=== PATIENT | female | born 1940 | race African-American/Black ===

== ENCOUNTER → 2016-11-12 | Outpatient (CLI) | payer MEDICARE, OTHER ==
[~2016-11-12] MED LIST: ACIPHEX20 MG PO; ACTOS15 MG PO; ALLEGRA ALLERG180 MG PO; ALLEGRA180 MG PO; ARIXTRA2.5 MG/0.1 SQ; ASPIRIN EC81 M1 PO; ASPIRIN81 M2 PO; ASPIRIN81 MG PO; ASTEPRO; ATARAX PO; ATROVENT NASAL15 ML; BACLOFEN10 MG PO; BLACK COHOSH40 M1 PO; BLACK COHOSH40 MG PO; CLARITIN10 M3 PO; COUMADIN3 MG PO; CYANOCOBALAMI100 MCG PO; DEXILANT60 MG PO; FENOGLIDE40 MG PO; FLONASE 0.05% N16 G1; FOLIC ACID800 MCG; FOLIC ACID800 MCG PO; HYDROCODON-ACE1 EAC5 PO; LEVAQUIN750 MG PO; LIPITOR20 MG PO; LOPRESSOR PO; METOPROLOL TAR25 MG PO; MICARDIS PO; NEURONTIN300 MG PO; NIFEDICAL; NIFEDICAL PO; NIFEDIPINE ER30 MG PO; NIFEDIPINE ER60 M1 PO; NIFEDIPINE ER60 M2 PO; NITROGLYCERIN0.4 MG SL; NORCO 10/3251 TAB PO; NORCO 5/325 TAB1 TAB PO; PERCOCET 5-3251 TAB PO; PERCOCET5/325 PO; PIOGLITAZONE HC15 MG PO; RYBIX ODT50 MG PO; TOPROL XL200 MG PO; TRAMADOL HCL50 M1 PO; TYLENOL325 M1 PO; VIT E PO; VITAMIN B-1250 MCG PO; VITAMIN B122500 MC1; VITAMIN E400 UNI1 PO; VITAMIN E400 UNI2 PO; VITAMIN E400 UNI4 PO
[2016-11-12 10:42] LABS: HEMATOCRIT 38.4 % (35.0-45.0); HEMOGLOBIN 12.5 gm/dL (12.0-16.0); MEAN CELL VOLUME 96.8 FL (83-96); MEAN CORPUSCULAR HEMOGLOBIN 31.6 PG (28-34); MEAN CORPUSCULAR HGB CONC 32.6 g/dL (30-36); MEAN PLATELET VOLUME 6.6 FL (6.5-11.5); RED BLOOD COUNT 3.96 X10e (3.90-5.30); RED CELL DISTRIBUTION WIDTH 12.5 % (11.0-15.5); WHITE BLOOD COUNT 7.1 X10e3 (4.0-10.5)
[2016-11-12 10:58] LABS: URINE BACTERIA AUWI NEG (NEGATIVE); URINE SQUAMOUS EPITHELIAL CELL OCC /[HPF]; UWBCS1 AUWI 0-2 (0-5)
[2016-11-12 11:05] LABS: CULTURE INDICATED? NO; URINE COLOR YELLOW; URINE SOURCE CLEAN CATCH
[2016-11-12 11:06] LABS: URINE APPEARANCE CLEAR; URINE LEUKOCYTE ESTERASE NEG (NEG); URINE NITRATE NEG (NEG); URINE PROTEIN 1+ (NEG); URINE SPECIFIC GRAVITY 1.037 (1.003-1.035)
[2016-11-12 11:07] LABS: URINE GLUCOSE NEG (NEG); URINE KETONE NEG (NEG)
[2016-11-12 11:08] LABS: URINE BILIRUBIN NEG (NEG); URINE BLOOD NEG (NEG)
[2016-11-12 11:09] LABS: URBCS1 AUWI 0-2 /[HPF] (0-2)
[2016-11-12 11:20] LABS: BUN/CREATININE RATIO 11.66; CREATININE SERUM 1.2 mg/dL (0.6-1.4); GLOM FILT RATE Estimated 55.9 mL/min (>60); POTASSIUM 3.9 mmol/L (3.5-5.1)
== END | disposition home or self-care (01) ==
LOC: CAMB 09:37
PROVIDERS: Orthopaedic Surgery
DX: Z01.818 Encounter for other preprocedural examination (principal); M24.662 Ankylosis, left knee; Z96.652 Presence of left artificial knee joint; I10 Essential (primary) hypertension; E11.9 Type 2 diabetes mellitus without complications; E78.5 Hyperlipidemia, unspecified; K92.2 Gastrointestinal hemorrhage, unspecified
CPT/HCPCS: 36415; 80048; 81003; 85027

== ENCOUNTER → 2016-11-24 | Day surgery (SDC) | payer MEDICARE, OTHER ==
--- NOTE | ~2016-11-24 | OR ---
Unit #: [id number] #: [id number] Patient: ROXANA VACA [id number] [address] [place], [place] [address] [id number] O MR#: [id number] NAME: ROXANA VACA. ROOM: Date of Procedure: 11/24/2016 Admission Date: 11/24/2016 Surgeon: Masoud Rodarte M.D. : 1940 Attending Physician: Masoud Rodarte M.D. Primary Care Physician: Virgil Gale M.D. OPERATIVE REPORT PREOPERATIVE DIAGNOSIS Arthrofibrosis, left total knee. POSTOPERATIVE DIAGNOSIS Arthrofibrosis, left total knee. PROCEDURE PERFORMED Arthroscopy, excision of scar tissue, and manipulation of left knee. ANESTHESIA General. ESTIMATED BLOOD LOSS About 25 to 50 mL. DESCRIPTION OF PROCEDURE The patient was brought to the operating room, given a general anesthetic. She was also given 1 g of Ancef. The left leg was prepped and draped in a sterile fashion. The leg was exsanguinated, placed in a leg apple and then prepped and draped. The arthroscope was introduced through the inferolateral portal. There was some drainage from the knee that appeared cloudy, so this was cultured. The patient then had the left knee visualized. Suprapatellar pouch and medial and lateral gutters had excessive scarring. We resected as much of this as possible and we did improve her motion to about 95 degrees of flexion. So, at that point, we elected to stop the procedure as the scar tissue was so thick and deep in the gutters, so I could not get to them with the arthroscope, so the portals were closed with #2 nylon. Sterile dressing applied and the general anesthetic reversed and the tourniquet released. Dictated by... Edgar Clement/candi TD: 11/25/2016 01:54 JOB #: [id number] Unit #: [id number] #: [id number] Patient: ROXNAA VACA OPERATIVE REPORT Page 1 of 1 X Masoud Rodarte MD PROCEDURE OPERATIVE NOTE
== END | disposition home or self-care (01) ==
LOC: CSUR 08:42
DX: M24.662 Ankylosis, left knee (principal); M19.90 Unspecified osteoarthritis, unspecified site; E11.9 Type 2 diabetes mellitus without complications; E78.5 Hyperlipidemia, unspecified; I10 Essential (primary) hypertension; D41.9 Neoplasm of uncertain behavior of unspecified urinary organ; I25.10 Atherosclerotic heart disease of native coronary artery without angina pectoris; Z96.653 Presence of artificial knee joint, bilateral; Z90.710 Acquired absence of both cervix and uterus; Z79.82 Long term (current) use of aspirin; Z79.899 Other long term (current) drug therapy; Z87.19 Personal history of other diseases of the digestive system; Z86.2 Personal history of diseases of the blood and blood-forming organs and certain disorders involving the immune mechanism
CPT/HCPCS: 82947; 87070; 87075; 87205; J2405; J3010

== ENCOUNTER 2017-01-16 10:38 | Emergency (ER) | payer MEDICARE, OTHER ==
--- NOTE | ~2017-01-16 | EKG ---
PATIENT: ROXANA VACA UNIT #: [id number] Ventricular Rate: 74 BPM Atrial Rate: 74 BPM P-R Interval: 184 ms QRS Duration: 76 ms Q-T Interval: 390 ms QTC Calculation(Bezet): 432 ms P [place]: 67 degrees Calculated R [place]: -42 degrees Calculated T [place]: 26 degrees Diagnosis Line: Normal sinus rhythm Diagnosis Line: Left axis deviation Diagnosis Line: Minimal voltage criteria for LVH, may be normal Diagnosis Line: variant Diagnosis Line: Possible Anterior infarct , age undetermined Diagnosis Line: Abnormal ECG Diagnosis Line: When compared with ECG of 05-MAY-2016 09:08, Diagnosis Line: Nonspecific T wave abnormality has replaced Diagnosis Line: inverted T waves in Inferior leads Diagnosis Line: Nonspecific T wave abnormality no longer evident Diagnosis Line: in Anterior leads Diagnosis Line: Confirmed by WAYNE BARCENAS MD ([id number]) on Diagnosis Line: 01/20/2017 3:11:32 PM INTERPRETING MD: NARINDER HERNANDEZ
--- NOTE | ~2017-01-16 | MR18 ---
[facility] A Service of [facility] RADIOLOGY TEXT RESULTS PATIENT: ROXANA VACA LOCATION: [facility] : 38 UNIT #: [id number] AGE: [address]: Melissa Lopez MD SEX: F ORDER DR: [id number] [facility] [address] [place], [place] [address] [id number] E MR#: [id number] Acc #: [id number] NAME: ROXANA VACA : 1940 SEX: F STUDY DATE/TIME: 01/16/2017 12:34 UNIT: MO ROOM: STUDY DESCRIPTION: MR Brain Wo Contrast Attending Physician: Franck Vann M.D. Ordering Physician: Franck Vann M.D. Primary Care Physician: Virgil Gale M.D. MRI CENTER REPORT This report is preliminary unless electronic signature is present. EXAM Brain MRI without contrast HISTORY Patient fell this morning. Confusion and gait disturbance, neck tenderness since falling. TECHNIQUE Multiplanar imaging brain of the brain was performed including diffusion weighted images. FINDINGS On diffusion weighted images there is no evidence of abnormal restricted diffusion to suggest a recent infarct. The routine brain images show encephalomalacia in the left posterior parietal region associated with chronic hemosiderin deposition. This is unchanged from previous scan and likely represents an area of previous hemorrhage or perhaps a large cavernous angioma. No recent hemorrhages are seen. Brain images elsewhere are normal. Extraaxial structures are unremarkable. 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 No acute findings. No evidence of recent infarct. Dictated by... Dex Roberson M.D. THIS IS AN ELECTRONICALLY VERIFIED REPORT Dex Roberson M.D. at 01/16/2017 4:28 PM RLF/julia [facility] A Service of [facility] RADIOLOGY TEXT RESULTS PATIENT: ROXANA VACA LOCATION: [facility] : 38 UNIT #: [id number] AGE: [address]: Melissa Lopez MD SEX: F ORDER DR: TD: 01/16/2017 14:29 JOB #: [id number] MRI CENTER REPORT Page 1 of 1 COPY
[~2017-01-16 10:38] MED LIST changes: -ASPIRIN EC81 M1 PO; -ASPIRIN81 MG PO; -BACLOFEN10 MG PO; -BLACK COHOSH40 MG PO; -CLARITIN10 M3 PO; -HYDROCODON-ACE1 EAC5 PO; -LOPRESSOR PO; -NEURONTIN300 MG PO; -NIFEDICAL PO; -NIFEDIPINE ER30 MG PO; -TRAMADOL HCL50 M1 PO; -TYLENOL325 M1 PO; -VITAMIN B-1250 MCG PO; -VITAMIN B122500 MC1; -VITAMIN E400 UNI2 PO
[2017-01-16 11:42] LABS: BASOPHIL# 0.1 X10e3 (0-0.3); BASOPHIL% 1.4 % (0-2.5); EOSINOPHIL# 0.2 X10e3 (0-0.7); EOSINOPHIL% 3.2 % (0.0-7.0); HEMATOCRIT 37.5 % (35.0-45.0); HEMOGLOBIN 12.4 gm/dL (12.0-16.0); LYMPHOCYTE# 1.9 X10e3 (1.0-3.5); LYMPHOCYTE% 37.9 % (17.0-45.0); MEAN CELL VOLUME 95.8 FL (83-96); MEAN CORPUSCULAR HEMOGLOBIN 31.6 PG (28-34); MEAN PLATELET VOLUME 6.6 FL (6.5-11.5); MONOCYTE# 0.6 X10e3 (0-1.0); MONOCYTE% 11.7 % (3.0-12.0); NEUTROPHIL# 2.3 X10e3 (1.5-7.1); NEUTROPHIL% 45.8 % (40-75); PLATELET COUNT 219 X10e3 (140-420); RED BLOOD COUNT 3.91 X10e (3.90-5.30); RED CELL DISTRIBUTION WIDTH 12.3 % (11.0-15.5)
[2017-01-16 11:43] LABS: DIFF IND NO
[2017-01-16 11:51] LABS: POC - CKMB <1.0 ng/mL (0.0-7.9); POC - TROPONIN <0.05 ng/mL (<=0.05)
[2017-01-16 11:58] LABS: PARTIAL THROMBOPLASTIN TIME 24.7 SECONDS (23.5-31.3)
[2017-01-16 12:05] LABS: ALBUMIN SERUM 3.5 g/dL (3.5-5.0); ALKALINE PHOSPHATASE 81 U/L (32-92); ALT (SGPT) 17 U/L (10-40); AST (SGOT) 24 U/L (10-42); BILIRUBIN, DIRECT 0.1 mg/dL (0.0-0.2); BILIRUBIN,TOTAL 1.1 mg/dL (0.2-2.0); BLOOD UREA NITROGEN 8 mg/dL (9-23); BUN/CREATININE RATIO 6.15; CALCIUM SERUM 9.7 mg/dL (8.4-10.2); CARBON DIOXIDE 27 mmol/L (22-31); CHLORIDE 109 mmol/L (100-111); CREATININE SERUM 1.3 mg/dL (0.6-1.4); GLOM FILT RATE Estimated 45.5 mL/min (>60); GLUCOSE FASTING 92 mg/dL (70-110); PROTEIN TOTAL SERUM 6.9 g/dL (6.0-8.3); SODIUM 142 mmol/L (135-145)
[2017-01-16 12:06] LABS: ALCOHOL BLOOD <5 mg/dL (0)
[2017-01-16 14:42] LABS: POC - CKMB <1.0 ng/mL (0.0-7.9); POC - TROPONIN <0.05 ng/mL (<=0.05)
[2017-01-16 14:45] LABS: URINE SOURCE CLEAN CATCH
[2017-01-16 14:50] LABS: URINE APPEARANCE CLEAR; URINE BILIRUBIN NEG (NEG); URINE BLOOD NEG (NEG); URINE COLOR YELLOW; URINE GLUCOSE NEG (NEG); URINE KETONE NEG (NEG); URINE LEUKOCYTE ESTERASE NEG (NEG); URINE NITRATE NEG (NEG); URINE PROTEIN NEG (NEG); URINE SPECIFIC GRAVITY 1.013 (1.003-1.035); URINE UROBILINOGEN 0.2 MG/DL (NEG)
[2017-01-16 15:06] LABS: CULTURE INDICATED? NO
[2017-04-13] MEDS ORDERED: METOPROLOL TAR25 MG PO (21:19)
[2017-04-13] MEDS ORDERED: BLACK COHOSH40 MG PO (21:20)
[2017-04-13] MEDS ORDERED: NITROGLYCERIN0.4 MG SL (21:20)
[2017-04-13] MEDS ORDERED: FOLIC ACID800 MCG (21:20)
[2017-04-13] MEDS ORDERED: VITAMIN E400 UNI2 PO (21:20)
[2017-04-13] MEDS ORDERED: VITAMIN B122500 MC1 (21:20)
[2017-04-13] MEDS ORDERED: LIPITOR20 MG PO (21:20)
[2017-04-13] MEDS ORDERED: DEXILANT60 MG PO (21:20)
[2017-04-13] MEDS ORDERED: MICARDIS PO (21:21)
[2017-04-13] MEDS ORDERED: ASPIRIN EC81 M1 PO (21:21)
[2017-04-13] MEDS ORDERED: ALLEGRA ALLERG180 MG PO (21:21)
[2017-04-13] MEDS ORDERED: NIFEDIPINE ER30 MG PO (21:21)
[2017-04-13] MEDS ORDERED: NIFEDICAL PO (21:23)
[2017-04-14] MEDS ORDERED: CLARITIN10 M3 PO (08:19)
[2017-04-14] MEDS ORDERED: MICARDIS PO (08:20)
[2017-04-14] MEDS ORDERED: LIPITOR20 MG PO (08:21)
[2017-04-14] MEDS ORDERED: LOPRESSOR PO (08:21)
[2017-04-14] MEDS ORDERED: HYDROCODON-ACE1 EAC5 PO (08:23)
[2017-04-14] MEDS ORDERED: DEXILANT60 MG PO (08:24)
[2017-04-14] MEDS ORDERED: BACLOFEN10 MG PO (08:24)
[2017-04-14] MEDS ORDERED: NEURONTIN300 MG PO (08:25)
[2017-04-14] MEDS ORDERED: NIFEDIPINE ER60 M1 PO (08:25)
[2017-04-14] MEDS ORDERED: TYLENOL325 M1 PO (15:40)
[2017-04-14] MEDS ORDERED: TRAMADOL HCL50 M1 PO (15:41)
== END 2017-01-16 17:32 | disposition home or self-care (01) ==
LOC: CED 10:38
PROVIDERS: Emergency Medicine
DX: T42.6X5A Adverse effect of other antiepileptic and sedative-hypnotic drugs, initial encounter (principal); I10 Essential (primary) hypertension; E11.9 Type 2 diabetes mellitus without complications; Z88.8 Allergy status to other drugs, medicaments and biological substances
CPT/HCPCS: 36415; 70551; 80048; 80076; 81003; 82553; 82947; 84484; 85025; 85610; 85730; 93005; 96374; 99284; G0480; J2060

== ENCOUNTER 2017-04-04 12:49 | Emergency (ER) | payer MEDICARE, OTHER ==
[~2017-04-04] VITALS: Ht 157.5 cm; Wt 54.4 kg
[2017-04-13] MEDS ORDERED: METOPROLOL TAR25 MG PO (21:19)
[2017-04-13] MEDS ORDERED: BLACK COHOSH40 MG PO (21:20)
[2017-04-13] MEDS ORDERED: NITROGLYCERIN0.4 MG SL (21:20)
[2017-04-13] MEDS ORDERED: DEXILANT60 MG PO (21:20)
[2017-04-13] MEDS ORDERED: LIPITOR20 MG PO (21:20)
[2017-04-13] MEDS ORDERED: FOLIC ACID800 MCG (21:20)
[2017-04-13] MEDS ORDERED: VITAMIN B122500 MC1 (21:20)
[2017-04-13] MEDS ORDERED: VITAMIN E400 UNI2 PO (21:20)
[2017-04-13] MEDS ORDERED: MICARDIS PO (21:21)
[2017-04-13] MEDS ORDERED: ASPIRIN EC81 M1 PO (21:21)
[2017-04-13] MEDS ORDERED: ALLEGRA ALLERG180 MG PO (21:21)
[2017-04-13] MEDS ORDERED: NIFEDIPINE ER30 MG PO (21:21)
[2017-04-13] MEDS ORDERED: NIFEDICAL PO (21:23)
[2017-04-14] MEDS ORDERED: CLARITIN10 M3 PO (08:19)
[2017-04-14] MEDS ORDERED: MICARDIS PO (08:20)
[2017-04-14] MEDS ORDERED: LOPRESSOR PO (08:21)
[2017-04-14] MEDS ORDERED: LIPITOR20 MG PO (08:21)
[2017-04-14] MEDS ORDERED: HYDROCODON-ACE1 EAC5 PO (08:23)
[2017-04-14] MEDS ORDERED: DEXILANT60 MG PO (08:24)
[2017-04-14] MEDS ORDERED: BACLOFEN10 MG PO (08:24)
[2017-04-14] MEDS ORDERED: NEURONTIN300 MG PO (08:25)
[2017-04-14] MEDS ORDERED: NIFEDIPINE ER60 M1 PO (08:25)
[2017-04-14] MEDS ORDERED: TYLENOL325 M1 PO (15:40)
[2017-04-14] MEDS ORDERED: TRAMADOL HCL50 M1 PO (15:41)
== END 2017-04-04 13:43 | disposition home or self-care (01) ==
LOC: CED 12:49
DX: M54.41 Lumbago with sciatica, right side (principal); E11.9 Type 2 diabetes mellitus without complications; I10 Essential (primary) hypertension; Z90.710 Acquired absence of both cervix and uterus; N28.9 Disorder of kidney and ureter, unspecified
CPT/HCPCS: 99283

== ENCOUNTER 2017-04-10 17:39 | Emergency (ER) | payer OTHER, MEDICARE ==
[~2017-04-10] VITALS: Ht 157.5 cm; Wt 54.4 kg
--- NOTE | ~2017-04-10 | CR181 ---
[facility] A Service of [facility] RADIOLOGY TEXT RESULTS PATIENT: ROXANA VACA LOCATION: [facility] : 38 UNIT #: [id number] AGE: [address]: Julien Canales MD SEX: F ORDER DR: [id number] [facility] [address] [place], [place] [address] [id number] E MR#: [id number] Acc #: [id number] NAME: ROXANA VACA : 1940 SEX: F STUDY DATE/TIME: 04/10/2017 19:01 UNIT: MO ROOM: STUDY DESCRIPTION: CR Lumbar Spine 2 or 3 Views Attending Physician: Julien Canales M.D. Ordering Physician: Julien Canales M.D. Primary Care Physician: Virgil Gale M.D. MEDICAL IMAGING REPORT This report is preliminary unless electronic signature is present EXAM Three views lumbar spine. DATE 04/10/2017 HISTORY 77-year-old female with lumbar spine pain which began 6 days ago, worse today. No known injury. COMPARISON Lumbar spine radiographs, 04/08/2017. FINDINGS There is advanced diminished disc height with vacuum disc phenomenon, endplate sclerosis, and anterior and posterior osteophyte formation at L3-4. No acute lumbar spine fracture. Probable 3 mm anterolisthesis L4 upon L5, likely chronic and related to facet arthropathy at that level. Facet arthropathy is greatest at L3-4 through L5-S1. No osteolytic or osteoblastic abnormalities are identified. Bilateral calcified pelvic phleboliths are incidentally noted. No sacroiliac joint or pubic symphysis diastasis is seen. IMPRESSION 1. Advanced degenerative disc and endplate changes at L3-4, unchanged from prior. 2. Probable 3 mm anterolisthesis L4 upon L5, likely related to facet arthropathy at that level. 3. No acute findings. [facility] A Service of [facility] RADIOLOGY TEXT RESULTS PATIENT: ROXANA VACA LOCATION: [facility] : 38 UNIT #: [id number] AGE: [address]: Julien Canales MD SEX: F ORDER DR: Dictated by... Dianne Silva M.D. THIS IS AN ELECTRONICALLY VERIFIED REPORT Dianne Silva M.D. at 04/11/2017 1:54 PM GENNARO/karol TD: 04/11/2017 10:13 JOB #: [id number] MEDICAL IMAGING REPORT Page 1 of 1 COPY
[2017-04-13] MEDS ORDERED: METOPROLOL TAR25 MG PO (21:19)
[2017-04-13] MEDS ORDERED: BLACK COHOSH40 MG PO (21:20)
[2017-04-13] MEDS ORDERED: VITAMIN E400 UNI2 PO (21:20)
[2017-04-13] MEDS ORDERED: DEXILANT60 MG PO (21:20)
[2017-04-13] MEDS ORDERED: NITROGLYCERIN0.4 MG SL (21:20)
[2017-04-13] MEDS ORDERED: LIPITOR20 MG PO (21:20)
[2017-04-13] MEDS ORDERED: FOLIC ACID800 MCG (21:20)
[2017-04-13] MEDS ORDERED: VITAMIN B122500 MC1 (21:20)
[2017-04-13] MEDS ORDERED: NIFEDIPINE ER30 MG PO (21:21)
[2017-04-13] MEDS ORDERED: ASPIRIN EC81 M1 PO (21:21)
[2017-04-13] MEDS ORDERED: MICARDIS PO (21:21)
[2017-04-13] MEDS ORDERED: ALLEGRA ALLERG180 MG PO (21:21)
[2017-04-13] MEDS ORDERED: NIFEDICAL PO (21:23)
[2017-04-14] MEDS ORDERED: CLARITIN10 M3 PO (08:19)
[2017-04-14] MEDS ORDERED: MICARDIS PO (08:20)
[2017-04-14] MEDS ORDERED: LOPRESSOR PO (08:21)
[2017-04-14] MEDS ORDERED: LIPITOR20 MG PO (08:21)
[2017-04-14] MEDS ORDERED: HYDROCODON-ACE1 EAC5 PO (08:23)
[2017-04-14] MEDS ORDERED: DEXILANT60 MG PO (08:24)
[2017-04-14] MEDS ORDERED: BACLOFEN10 MG PO (08:24)
[2017-04-14] MEDS ORDERED: NEURONTIN300 MG PO (08:25)
[2017-04-14] MEDS ORDERED: NIFEDIPINE ER60 M1 PO (08:25)
[2017-04-14] MEDS ORDERED: TYLENOL325 M1 PO (15:40)
[2017-04-14] MEDS ORDERED: TRAMADOL HCL50 M1 PO (15:41)
== END 2017-04-10 20:26 | disposition home or self-care (01) ==
LOC: CED 17:39
DX: M54.41 Lumbago with sciatica, right side (principal); Z90.710 Acquired absence of both cervix and uterus
CPT/HCPCS: 72100; 99283

== ENCOUNTER 2017-04-19 09:50 | Emergency (ER) | payer MEDICARE, OTHER ==
[~2017-04-19] VITALS: Ht 157.5 cm; Wt 63.5 kg
--- NOTE | ~2017-04-19 | ER ---
Unit #: [id number] #: [id number] Patient: ROXANA KING [id number] [address] [place], [place] [address] [id number] E MR#: [id number] NAME: ROXANA KING. ROOM: Sex: F Age: 77 : 1940 Service Date: 04/19/2017 Attending Physician: Julien Canales M.D. Primary Care Physician: Virgil Gale M.D. EMERGENCY DEPT PHYSICIAN NOTE Please see the written T-sheet for the full details of the encounter. Ms. King is a 77-year-old woman who presents to the emergency department today with a chief complaint of right leg pain that radiates from the lower back, that has been present for over a month. This is in fact the fourth time the patient has presented to the emergency department with this chief complaint and in addition to her four ER visits, she has had at least one visit to her primary doctor regarding her presumably sciatic pain. Initially, the patient was seen on April 04 and was diagnosed clinically with sciatica, given a course of steroids to complete. She represented to the emergency department on April 10. At that time, a lumbar spine x-ray was ordered which showed degenerative changes but nothing acute. She was prescribed Lortab and baclofen for her symptoms and advised to follow up with her doctor. Apparently, the patient did follow up with her doctor and had an outpatient CT ordered to address her ongoing symptoms; however, the patient did not complete the CT on April 13 and instead came to the emergency department again for the same chronic pain. However, on that date the patient was noted to be significantly altered from her previous visits, confused, and disoriented. An extensive workup was completed showing no obvious source for the patient's confusion and thus it was attributed to the recent pain medications that were started. The patient was observed overnight. Pain medications were discontinued and her mental status returned to normal. The patient again presents today for the same complaint stating that she had had no new injury to her lower back or leg and that the pain was not significantly different than the previous three visits to the emergency department this month. I explained to the patient that the emergency department is not the appropriate venue for the ongoing treatment of chronic pain and that especially in light of her previous visit showing a poor reaction to narcotic pain medication that it would be inappropriate to prescribe additional or stronger pain medication given her altered mental status previously. I expressed concern to the patient that continuing to come to the emergency department for the same complaint would be unlikely to advance her workup or to significantly help her symptoms. After a physical exam which demonstrated no focal neurological abnormality and history which did not reveal any concerning findings for cord compromise, I discussed with the patient the plan to start her on Neurontin to see if this helps with her neuropathic pain. I again re-iterated to the patient that followup was essential and that continued ER visits again would be unlikely to be of benefit to her. The patient voiced understanding and agreed to followup as directed. She will be given contact information for spine surgery and given a prescription for a short course of gabapentin in an attempt to help with her chronic pain while attempting not to create a similar situation to her previous admission when her toxic metabolic encephalopathy was attributed to the narcotic pain medication. Unit #: [id number] #: [id number] Patient: ROXANA KING Estela Dictated by... Edgar Seth/cecy TD: 04/19/2017 15:30 JOB #: [id number] EMERGENCY DEPT PHYSICIAN NOTE Page 1 of 1 X Julien Canales MD X EMERGENCY DEPARTMENT REPORT
[~2017-04-19 09:50] MED LIST changes: +ASPIRIN EC81 M1 PO; +BACLOFEN10 MG PO; +BLACK COHOSH40 MG PO; +CLARITIN10 M3 PO; +HYDROCODON-ACE1 EAC5 PO; +LOPRESSOR PO; +NEURONTIN300 MG PO; +NIFEDICAL PO; +NIFEDIPINE ER30 MG PO; +TRAMADOL HCL50 M1 PO; +TYLENOL325 M1 PO; +VITAMIN B122500 MC1; +VITAMIN E400 UNI2 PO
== END 2017-04-19 11:08 | disposition home or self-care (01) ==
LOC: CED 09:50
DX: M54.41 Lumbago with sciatica, right side (principal); N18.9 Chronic kidney disease, unspecified; E78.5 Hyperlipidemia, unspecified; Z90.710 Acquired absence of both cervix and uterus; Z79.899 Other long term (current) drug therapy
CPT/HCPCS: 99283

== ENCOUNTER 2017-04-21 15:04 | Inpatient (IN) | payer MEDICARE, OTHER ==
[~2017-04-21] VITALS: Ht 157.5 cm; Wt 62.0 kg
--- NOTE | ~2017-04-21 | OR ---
Unit #: [id number] #: [id number] Patient: ROXANA VACA [id number] [facility]. [place], [place] [address] [id number] I MR#: [id number] NAME: ROXANA VACA. ROOM: 301 Date of Procedure: 04/22/2017 Admission Date: 04/21/2017 Surgeon: Chato Smith M.D. : 1940 Attending Physician: Daija Paul M.D. Primary Care Physician: Reece Gale M.D. SURGERY CENTER OPERATIVE NOTE JOB NOTE: CC: DR. REECE GALE. PROCEDURE PERFORMED Lumbar epidural steroid injection under x-ray guided needle placement. PREOPERATIVE DIAGNOSES 1. Acute lumbar radiculitis. 2. Herniated disk, L3-4. 3. Spinal stenosis, lumbosacral spine. 4. Degenerative joint disease, lumbosacral spine. 5. Degenerative disk disease, lumbosacral spine. 6. Facet arthrosis, lumbosacral spine. 7. Facet arthralgia, lumbosacral spine. INDICATIONS FOR PROCEDURE The patient is currently in an inpatient at [facility] with an intractable right lower extremity pain, which has interfered with her activities of normal living. She has had a longstanding history of chronic lumbar radicular pain, which has been fairly well managed medically up until this date. She is in possession of a CT report, which shows L3-4 disk disease as well as multiple level other disk disease, stenosis and facet arthrosis. After discussing risks and benefits of proceeding today with a lumbar approach epidural steroid injection and return on 05/11 to my clinic as an outpatient. The patient agreed this would be the appropriate course of action. DESCRIPTION OF PROCEDURE She was then taken to the operating room where she was prepped and draped in a sterile manner. Standard monitors were applied. She refused all forms of sedation and L3-4 level was accessed using loss of resistance technique and x-ray guidance. Needle placement was confirmed with injection of 2 mL of Omnipaque. Approximately all dye flow was in the inferior direction at this L3-4 needle placement. Following successful needle placement confirmation, the patient received an injectate containing 2 mL of normal saline, 2 mL of 0.25% bupivacaine, and 80 mg of methylprednisolone. She tolerated this procedure well. She was discharged back to her room with followup instructions described as above. At her next visit, we will strongly consider an L2-3, L4-5, dual needle technique. Dictated by.Tiffanie Smith M.D. Unit #: [id number] #: [id number] Patient: ROXANA VACA Estela DURAN/candi TD: 04/23/2017 05:39 JOB #: [id number] SURGERY CENTER OPERATIVE NOTE Page 1 of 1 X Rancho Smith MD X PROCEDURE OPERATIVE NOTE
--- NOTE | ~2017-04-21 | DS ---
Unit #: [id number] #: [id number] Patient: ROXANA KING [id number] [address] [address] [id number] I MR#: [id number] NAME: ROXANA KING. ROOM: 301 Age: 77 Sex: F Admission Date: 04/21/2017 : 1940 Discharge Date: 04/22/2017 Attending Physician: Daija Paul M.D. Primary Care Physician: Virgil Gale M.D. DISCHARGE SUMMARY PRINCIPAL DIAGNOSES 1. Medication-induced hypotension. 2. Gwhnq-ma-vpfziqd kidney disease with discharge creatinine of 1.5, baseline creatinine 1.3. 3. L3-L4 disc collapse with severe right nerve root compression, status post epidural injection. 4. Hypertension. 5. Coronary artery disease. 6. Memory loss short term confirmed by . 7. Normocytic anemia 8. Coronary artery disease. 9. Gastroesophageal reflux disease. 10. Hyperlipidemia. 11. Osteoarthritis. CONSULTANTS Dr. Reece Ventura, pain management PROCEDURES Epidural block of L3-L4, this occurred without complication CLINICAL HISTORY AND HOSPITAL COURSE Ms. King is a 77-year-old female, just discharged from this facility on April 14, after presenting with confusion. She was sent home with instructions to discontinue her Micardis. Unfortunately, the patient reinitiated medication at home and subsequently presented with hypotension and associated dizziness. Her creatinine was also elevated at 2.1 up from her baseline of 1.3. The patient subsequently admitted. Micardis again was held. The patient was placed on IV fluids and her blood pressure is now normalized into the 110s. She is not having any further dizziness and I am still awaiting evaluation by physical and occupational therapy. However, assuming that she is able to ambulate, again, I have instructed both her and her to hold her Micardis. Renal function has also improved significantly and I think that she will return to baseline with appropriate oral intake. The patient does have some significant right-sided radiculopathy secondary to nerve impingement from a collapsed L3-L4 disc. Dr. Ventura was consulted and the patient underwent epidural block today and feels significantly better. She will followup with Dr. Gale and Dr. Smith Unit #: [id number] #: [id number] Patient: ROXANA KING who performed the procedure as an outpatient. I am concerned that the patient had some significant underlying short term memory loss. Her was present today and confirmed that she does, indeed, have memory loss, and the patient also admits that she has some short-term memory loss. I have instructed her to remove her Micardis from her home medications and I will have home health further come and evaluate medications at home. She will be discharged home later today presuming that she is able to function well with PT/OT. DISCHARGE CONDITION Stable. DISCHARGE STATUS Discharged to home. DISCHARGE MEDICATIONS 1. Neurontin 300 mg b.i.d. 2. Caro 180 mg daily 3. Lopressor 25 mg b.i.d. 4. Lipitor 20 mg daily 5. Aspirin 81 mg daily 6. Tramadol 50 mg p.o. q.8h p.r.n. for pain, no new prescription given 7. Dexilant 60 mg daily 8. Folic acid 800 mcg p.o. daily 9. Vitamin E 400 units p.o. daily 10. Vitamin B12 1000 mcg p.o. daily DISCHARGE INSTRUCTIONS The patient is instructed to follow a heart healthy diet. She can increase her activity as tolerated. FOLLOWUP The patient will follow up with Dr. Gale in one week and again she will follow up with Dr. Smith on May 11, 2017. Dictated by... Daija Paul M.D. THOMAS/dana TD: 04/23/2017 06:34 JOB #: [id number] DISCHARGE SUMMARY Page 1 of 1 X Daija Paul MD X DISCHARGE SUMMARY
--- NOTE | ~2017-04-21 | HP ---
Unit #: [id number] #: [id number] Patient: ROXANA VACA [id number] [address] [place], [place] [address] [id number] I MR#: [id number] NAME: ROXANA VACA. ROOM: 301 Age: 77 Sex: F Admission Date: 04/21/2017 : 1940 Attending Physician: Gina Shah M.D. Primary Care Physician: Virgil Gale M.D. HISTORY AND PHYSICAL CHIEF COMPLAINT Acute on chronic kidney disease with symptomatic hypotension. HISTORY OF PRESENT ILLNESS This pleasant 77-year-old female with chronic kidney disease, hypertension, and DJD, is admitted for acute on chronic kidney disease. The patient developed right sciatica about a week ago. She was placed on baclofen and Percocet and required admission April 13 through April 14, 2017, for toxic metabolic encephalopathy secondary to medications. A CT scan was actually performed yesterday showing collapse of the L3-4 disc with nerve root impingement on the right. Patient notes increasing dizziness for the past two days. She has had poor p.o. intake and decreased urinary output. She was seen by visiting nurse service today and was noted to have a low blood pressure with a systolic blood pressure of about 79. She was told to come back to the emergency department, and her creatinine is 2.1, up from a creatinine of 1.3 last week. She still is taking Micardis, although this medication was to be discontinued a week ago. In the ER, she was given a liter of saline. On examination, she does have positive straight leg raising at about 80 degrees on the right. PAST MEDICAL HISTORY 1. Chronic DJD. 2. Essential hypertension. 3. Hyperlipidemia. 4. Chronic kidney disease with a creatinine of 1.3 on April 14, 2017. 5. Mild CAD. Patient underwent a cardiac catheterization October 2008 showing minimal CAD. Lexiscan Cardiolite performed August 2013 was negative for ischemia. Patient had a normal ejection fraction. 6. Questionable AODM. 7. GERD. 8. Thyroid nodule with thyroid cancer, status post thyroidectomy. Recent TSH was normal. 9. Allergic rhinitis. 10. Thyroidectomy. 11. Bilateral total knee replacements with left knee revision. 12. Hysterectomy. 13. Bilateral cataract extraction. ALLERGIES Coumadin. HOME MEDICATIONS 1. Patient is taking Micardis which was to be discontinued last week, 78 Unit #: [id number] #: [id number] Patient: ROXANA VACA M mg daily. 2. Neurontin 300 mg b.i.d. 3. Claritin 10 mg daily. 4. Metoprolol 25 mg b.i.d. 5. Nifedipine ER 60 mg daily. 6. Lipitor 20 mg daily. 7. Dexilant 60 mg daily. 8. Ultram 50 mg q.8 hours p.r.n. 9. Patient states that she is taking a muscle relaxant, and that might be making her dizzy as well. FAMILY HISTORY CAD. SOCIAL HISTORY The patient lives with her . Lifelong nonsmoker and does not drink alcohol. REVIEW OF SYSTEMS Notable for dizziness, back pain, above-mentioned surgeries, DJD, hypertension, hyperlipidemia, chronic kidney disease, and thyroid cancer. All other systems were reviewed and are otherwise negative. PHYSICAL EXAMINATION GENERAL: A very pleasant, young-appearing, 77-year-old female currently in no acute distress. VITAL SIGNS: Temperature 98.2, pulse 89, respirations 16, blood pressure 105/43, and O2 saturation is 99% on room air. HEENT: Eyes PERRLA. Extraocular muscles are intact, status post bilateral cataract extraction. Pharynx is benign. NECK: Supple without adenopathy or thyromegaly. CHEST: Clear. CARDIAC: Normal S1 and S2 without S3, S4, or murmur. ABDOMEN: Bowel sounds are present. No hepatosplenomegaly, tenderness, or masses. EXTREMITIES: Without clubbing, cyanosis, or edema. Pedal pulses are present. NEUROLOGIC: Patient is awake and alert. She seems to be a little confused. Her cranial nerves are intact, although she is blinking her eyes quite a bit. She has +5 over 5 strength throughout. She is able to stand without assistance. Negative pronator drift. Deep tendon reflexes are hard to obtain. BACK: No percussion tenderness over the spine. Patient does have a positive straight leg raising on the right at 80 degrees. DIAGNOSTIC STUDIES ADMISSION LABORATORY: Hematocrit is 36.3 with normal white count and platelet count. SMA-12: Creatinine is 2.1, up from a creatinine of 1.3 last week. Cardiac markers are negative. Urinalysis 1+ leukocyte esterase and trace protein without significant white or red cells. CARDIOLOGY: EKG normal sinus rhythm, rate 80, left axis deviation, unchanged from before. ASSESSMENT 1. Acute on chronic kidney disease in part related to poor oral intake. Also, patient is still taking Micardis which was to be discontinued last week. Unit #: [id number] #: [id number] Patient: ROXAAN VACA 2. Right sciatica secondary to L3-L4 disc collapse with right nerve root compression on CT scan performed yesterday. 3. Essential hypertension with hypotension at home. 4. Minimal coronary artery disease on cardiac catheterization in October 2008 and negative ischemia on Lexiscan Cardiolite in August 2013. 5. DJD. 6. Thyroidectomy for thyroid cancer with normal TSH this past month. PLANS 1. IV fluids. 2. Discontinue Micardis and will hold nifedipine until blood pressure improves. 3. SCDs for DVT prophylaxis. 4. Will ask Dr. Corey Ventura to see for possible epidural steroid injection of L3-L4 disc if felt to be appropriate. 1. Dictated by Gina Shah M.D. ANNELIESE/maykel TD: 04/21/2017 22:08 JOB #: [id number] HISTORY AND PHYSICAL Page 1 of 1 X Gina Shah MD HISTORY AND PHYSICAL
--- NOTE | ~2017-04-21 | EKG ---
PATIENT: ROXANA VACA UNIT #: [id number] Ventricular Rate: 81 BPM Atrial Rate: 81 BPM P-R Interval: 148 ms QRS Duration: 80 ms Q-T Interval: 378 ms QTC Calculation(Bezet): 439 ms P [place]: 67 degrees Calculated R [place]: -52 degrees Calculated T [place]: 42 degrees Diagnosis Line: Normal sinus rhythm Diagnosis Line: Left anterior fascicular block Diagnosis Line: Minimal voltage criteria for LVH, may be normal Diagnosis Line: variant Diagnosis Line: Anterior infarct , age undetermined Diagnosis Line: Abnormal ECG Diagnosis Line: When compared with ECG of 13-APR-2017 16:27, Diagnosis Line: No significant change was found Diagnosis Line: Confirmed by MONICA RAJAN MD ([id number]) on 04/22/2017 Diagnosis Line: 7:16:30 PM INTERPRETING MD: SATINDER HERNANDEZ
[2017-04-21 16:23] LABS: BASOPHIL# 0.1 X10e3 (0-0.3); EOSINOPHIL# 0.1 X10e3 (0-0.7); EOSINOPHIL% 1.2 % (0.0-7.0); HEMATOCRIT 36.3 % (35.0-45.0); HEMOGLOBIN 12.2 gm/dL (12.0-16.0); LYMPHOCYTE# 2.5 X10e3 (1.0-3.5); LYMPHOCYTE% 31.1 % (17.0-45.0); MEAN CELL VOLUME 94.4 FL (83-96); MEAN CORPUSCULAR HEMOGLOBIN 31.7 PG (28-34); MEAN CORPUSCULAR HGB CONC 33.6 g/dL (30-36); MEAN PLATELET VOLUME 6.5 FL (6.5-11.5); MONOCYTE# 0.8 X10e3 (0-1.0); MONOCYTE% 10.7 % (3.0-12.0); NEUTROPHIL# 4.4 X10e3 (1.5-7.1); PLATELET COUNT 245 X10e3 (140-420); RED BLOOD COUNT 3.84 X10e (3.90-5.30); RED CELL DISTRIBUTION WIDTH 13.1 % (11.0-15.5); WHITE BLOOD COUNT 7.9 X10e3 (4.0-10.5)
[2017-04-21 16:24] LABS: DIFF IND NO
[2017-04-21 16:27] LABS: POC - CKMB <1.0 ng/mL (0.0-7.9); POC - TROPONIN <0.05 ng/mL (<=0.05)
[2017-04-21 16:48] LABS: BILIRUBIN, DIRECT 0.2 mg/dL (0.0-0.2); BILIRUBIN,INDIRECT 1.4 mg/dL (0.0-0.9); BILIRUBIN,TOTAL 1.6 mg/dL (0.2-2.0); BUN/CREATININE RATIO 9.04; CALCIUM SERUM 9.9 mg/dL (8.4-10.2); CREATININE SERUM 2.1 mg/dL (0.6-1.4); GLOM FILT RATE Estimated 25.3 mL/min (>60); POTASSIUM 4.2 mmol/L (3.5-5.1); PROTEIN TOTAL SERUM 7.6 g/dL (6.0-8.3)
[2017-04-21 18:27] LABS: POC - CKMB <1.0 ng/mL (0.0-7.9); POC - TROPONIN <0.05 ng/mL (<=0.05)
[2017-04-21 18:40] LABS: URINE SOURCE CLEAN CATCH
[2017-04-21 18:49] LABS: URINE APPEARANCE CLEAR; URINE BILIRUBIN NEG (NEG); URINE BLOOD NEG (NEG); URINE COLOR YELLOW; URINE GLUCOSE NEG (NEG); URINE KETONE NEG (NEG); URINE LEUKOCYTE ESTERASE 1+ (NEG); URINE NITRATE NEG (NEG); URINE PROTEIN TRACE (NEG); URINE SPECIFIC GRAVITY 1.013 (1.003-1.035); URINE UROBILINOGEN 0.2 MG/DL (NEG)
[2017-04-21 18:52] LABS: URBCS1 AUWI 0-2 /[HPF] (0-2); URINE BACTERIA AUWI NEG (NEGATIVE); URINE SQUAMOUS EPITHELIAL CELL OCC /[HPF]
[2017-04-21 18:57] LABS: CULTURE INDICATED? NO
[2017-04-21] MEDS ORDERED: ASPIRIN81 MG PO (23:45)
[2017-04-21] MEDS ORDERED: ALLEGRA ALLERG180 MG PO (23:45)
[2017-04-21] MEDS ORDERED: BLACK COHOSH40 M1 PO (23:46)
[2017-04-21] MEDS ORDERED: FOLIC ACID800 MCG PO (23:46)
[2017-04-21] MEDS ORDERED: VITAMIN E400 UNI4 PO (23:49)
[2017-04-21] MEDS ORDERED: VITAMIN B-1250 MCG PO (23:49)
[2017-04-22 05:43] LABS: HEMATOCRIT 31.8 % (35.0-45.0); HEMOGLOBIN 10.7 gm/dL (12.0-16.0); MEAN CELL VOLUME 95.2 FL (83-96); MEAN CORPUSCULAR HEMOGLOBIN 32.1 PG (28-34); MEAN CORPUSCULAR HGB CONC 33.7 g/dL (30-36); MEAN PLATELET VOLUME 6.3 FL (6.5-11.5); RED BLOOD COUNT 3.35 X10e (3.90-5.30); RED CELL DISTRIBUTION WIDTH 12.9 % (11.0-15.5); WHITE BLOOD COUNT 5.7 X10e3 (4.0-10.5)
[2017-04-22 06:19] LABS: CREATININE SERUM 1.5 mg/dL (0.6-1.4); POTASSIUM 3.8 mmol/L (3.5-5.1)
== END 2017-04-22 14:38 | disposition home health service (06) | DRG 700 ==
LOC: CED 15:04 → C3A PCU 21:08 → CEDOF 21:08 → CED 21:08 → CEDOF 21:40 → C3A PCU 22:03 → CEDOF 22:03 → C3A PCU 22:03
PROVIDERS: Anesthesiology; Emergency Medicine; Internal Medicine
PROC: 3E0R3BZ Introduction of Anesthetic Agent into Spinal Canal, Percutaneous Approach (ICD-10-PCS; 2017-04-22)
PROC: 3E0R33Z Introduction of Anti-inflammatory into Spinal Canal, Percutaneous Approach (ICD-10-PCS; principal; 2017-04-22 09:00)
DX: N28.9 Disorder of kidney and ureter, unspecified (principal); I95.2 Hypotension due to drugs; I25.10 Atherosclerotic heart disease of native coronary artery without angina pectoris; R41.3 Other amnesia; K21.9 Gastro-esophageal reflux disease without esophagitis; E78.5 Hyperlipidemia, unspecified; M19.90 Unspecified osteoarthritis, unspecified site; T50.2X5A Adverse effect of carbonic-anhydrase inhibitors, benzothiadiazides and other diuretics, initial encounter; M51.17 Intervertebral disc disorders with radiculopathy, lumbosacral region; N18.9 Chronic kidney disease, unspecified; I12.9 Hypertensive chronic kidney disease with stage 1 through stage 4 chronic kidney disease, or unspecified chronic kidney disease
CPT/HCPCS: 36415; 72131; 80048; 80076; 81003; 82553; 82947; 84484; 85025; 85027; 93005; 96360; 97161; 97165; 99283; 99285; G8978-GP; G8979-GP; G8980-GP; G8987-GO; G8988-GO; G8989-GO; J1040; J2250

== ENCOUNTER 2017-05-01 13:39 | Emergency (ER) | payer MEDICARE, OTHER ==
[~2017-05-01] VITALS: Ht 157.5 cm; Wt 62.0 kg
[~2017-05-01 13:39] MED LIST changes: +ASPIRIN81 MG PO; +VITAMIN B-1250 MCG PO
[2017-05-01 15:07] LABS: BASOPHIL# 0.1 X10e3 (0-0.3); BASOPHIL% 1.1 % (0-2.5); EOSINOPHIL# 0.2 X10e3 (0-0.7); EOSINOPHIL% 2.2 % (0.0-7.0); HEMATOCRIT 33.3 % (35.0-45.0); HEMOGLOBIN 11.3 gm/dL (12.0-16.0); LYMPHOCYTE# 2.3 X10e3 (1.0-3.5); LYMPHOCYTE% 31.7 % (17.0-45.0); MEAN CELL VOLUME 96.5 FL (83-96); MEAN CORPUSCULAR HEMOGLOBIN 32.9 PG (28-34); MEAN CORPUSCULAR HGB CONC 34.1 g/dL (30-36); MONOCYTE# 0.8 X10e3 (0-1.0); MONOCYTE% 11.6 % (3.0-12.0); NEUTROPHIL# 3.9 X10e3 (1.5-7.1); NEUTROPHIL% 53.4 % (40-75); PLATELET COUNT 278 X10e3 (140-420); RED BLOOD COUNT 3.45 X10e (3.90-5.30); RED CELL DISTRIBUTION WIDTH 13.4 % (11.0-15.5); WHITE BLOOD COUNT 7.2 X10e3 (4.0-10.5)
[2017-05-01 15:08] LABS: DIFF IND NO
[2017-05-01 15:30] LABS: BUN/CREATININE RATIO 8.33; CALCIUM SERUM 9.4 mg/dL (8.4-10.2); CREATININE SERUM 1.2 mg/dL (0.6-1.4); GLOM FILT RATE Estimated 49.8 mL/min (>60); POTASSIUM 3.6 mmol/L (3.5-5.1)
== END 2017-05-01 17:50 | disposition home or self-care (01) ==
LOC: CED 13:39
PROVIDERS: Emergency Medicine
DX: I82.409 Acute embolism and thrombosis of unspecified deep veins of unspecified lower extremity (principal); Z79.82 Long term (current) use of aspirin; Z79.899 Other long term (current) drug therapy; Z88.6 Allergy status to analgesic agent; Z88.8 Allergy status to other drugs, medicaments and biological substances
CPT/HCPCS: 36415; 80048; 85025; 93970; 99283